=== PATIENT | male | born 1945 | race Caucasian/White ===

== ENCOUNTER → 2017-08-26 07:30 | Outpatient (CLI) | payer MEDICARE, SELFPAY ==
[2017-08-26 10:55] LABS: AST(SGOT) 27 U/L (15-37); Alanine Aminotransfer ALT/SGPT 32 U/L (16-61); Albumin, Serum 3.7 g/dL (3.2-5.0); Alkaline Phosphatase 66 U/L (45-117); Bilirubin, Direct 0.18 mg/dL (0.00-0.30); Cholesterol 103 mg/dL (200); Globulin 3.7 g/dL (2.2-4.2); High Density Lipoprotein 35 mg/dL; Protein, Total 7.4 g/dL (6.4-8.2); Triglycerides 98 mg/dL; Very Low Density Lipoprotein 20 mg/dL (5-40)
== END ==
PROVIDERS: Internal Medicine Cardiovascular Disease; Family Provider Family Medicine; PCP Family Medicine; Visit Provider Family Medicine
DX: E78.5 Hyperlipidemia, unspecified (principal); Z79.899 Other long term (current) drug therapy
CPT/HCPCS: 36415; 80061; 80076

== ENCOUNTER 2018-04-14 14:49 | Outpatient (RCR) | payer MEDICARE, SELFPAY ==
--- NOTE | 2018-04-14 15:52 | HP.PTEVAL ---
Patient's Visit Information YOSELYN PENALOZA Jr. is a 73 year old M referred to Physical Therapy by Chema Coleman with a diagnosis of vertigo. Date of Evaluation: 04/14/18 Physical Therapist: Desmond Leon, ELISAT, OCS, CSCS - Visit Plan Frequency: 1x/Week Duration: 4 Weeks Plan: weekly for adaptation ex progession...doing VOR30 -60 seconds 5x/day - Subjective Findings: Dizzy for a couple wekks now. Woke up that way and stayed for a while. Now worse in the am and can hardly walk but better as day goes on. Described as nausea and unsteady and some spinning with bending over, lying in bed or looking up. tried to trim some trees yesterday and it was bad. No falls. Sleep is good. Retired. needs help with balance to put pants on in am some days. - Objective Walks well and trasnfers well today without dizzyness. balance is good. C/s AROM WNL. - B hallpike and - roll test. Oculomotor: - head thrust. no nystagmus with gaze or head shake. - skew eye deviation. normal convergence. pursuit and saccades appear normal adn asymptomatic. VOR is symptomatic after 20 seconds 4/10 for 15 seconds. - Balance Scores Functional Gait Assessment Score: 30 % Disability: 0 CATSIB Score (Max score 120 seconds): 120 - Goals Goal 1:: abolish vertigo Goal Time Frame: 2-4 Weeks Goal 2:: Walk normal in am and safe and confident Goal Time Frame: 2-4 Weeks Goal 3:: put pants on without help Goal Time Frame: 2-4 Weeks - Rehabilitation Potential Physical Therapy Diagnosis: vertigo possibly vestibular. Rehabilitation Potential: Fair - Anticipated Interventions Patient/Client Instruction: Educate patient on: Condition, Plan of Care For the Purpose of:: To increase tolerance to activity/condition/position Comment: vestibular ex For the Purpose of:: To increase tolerance to activity/condition/position, To improve gait and locomotor functions Thank you for the opportunity to evaluate your patient. For Medicare and Medicare HMO plans, please review the plan of care and approve it. It will need to be FAXED BACK to us at [phone] for Medicare purposes. For Medicare only, by signing this I certify the plan of care. Please let me know if there are questions or concerns regarding this plan of care. Physician Signature: Date:
--- NOTE | 2018-06-09 16:20 | HP.PT.NRP ---
HP - Discharge Summary (1) - Patient Information YOSELYN PENALOZA Jr. was seen in my office for initial evaluation on 04/14/18. The following Plan of Care was established for this patient: Initial Frequency: 1x/Week Initial Duration: 4 Weeks - Anticipated Interventions Patient/Client Instruction: Educate patient on: Condition, Plan of Care For the Purpose of:: To increase tolerance to activity/condition/position For the Purpose of:: To increase tolerance to activity/condition/position, To improve gait and locomotor functions This patient was last seen in our office 04/14/18. Pertinent comments regarding their Physical therapy will appear below: pt seen one visit and then mom cancelled the rest as they were changing his meds and would call if they wished to return. it has been nearly two months adn I iwll disocntinue due to nonattendance. At this point I will be discontinuing this patient from physical therapy. I would be happy to see this patient again in the future if found appropriate by the physician. Thank you! Desmond Leon, DPT, OCS, CSCS
== END 2018-04-14 19:00 | disposition home or self-care (01) ==
LOC: PT 14:49
PROVIDERS: Family Provider Family Medicine; PCP Family Medicine; Referring Provider Family Medicine; Visit Provider Family Medicine
DX: R42 Dizziness and giddiness (principal)
CPT/HCPCS: 97110; 97162

== ENCOUNTER → 2018-04-24 07:36 | Outpatient (CLI) | payer MEDICARE, SELFPAY ==
[2018-04-17 12:37] VITALS: BMI 29.7
[2018-04-24 10:53] LABS: AST(SGOT) 23 U/L (15-37); Alanine Aminotransfer ALT/SGPT 30 U/L (16-61); Albumin, Serum 3.8 g/dL (3.2-5.0); Alkaline Phosphatase 71 U/L (45-117); Bilirubin, Direct 0.22 mg/dL (0.00-0.30); Cholesterol 107 mg/dL (200); Globulin 3.6 g/dL (2.2-4.2); High Density Lipoprotein 32 mg/dL; Protein, Total 7.4 g/dL (6.4-8.2); Triglycerides 124 mg/dL; Very Low Density Lipoprotein 25 mg/dL (5-40)
== END ==
PROVIDERS: Family Provider Family Medicine; PCP Family Medicine; Referring Provider Internal Medicine Cardiovascular Disease; Visit Provider Internal Medicine Cardiovascular Disease
DX: I25.10 Atherosclerotic heart disease of native coronary artery without angina pectoris (principal); E78.00 Pure hypercholesterolemia, unspecified
CPT/HCPCS: 36415; 80061; 80076

== ENCOUNTER → 2018-12-23 07:25 | Outpatient (CLI) | payer MEDICARE, SELFPAY ==
[2018-04-17 12:37] VITALS: BMI 29.7
[2018-12-23 10:12] LABS: Absolute Lymphocyte Count 1.66 X10^3/uL (0.83-4.51); Basophil# 0.05 X10^3/uL; Basophil% 0.9 % (0-1); Eosinophil# 0.12 X10^3/uL; Eosinophils% 2.2 % (0-5); Hematocrit 43.4 % (40-54); Lymphocyte # 1.66 X10^3/ul (4.0); Mean Corp Hgb Conc 34.6 g/dL (32-36); Mean Corpuscular Hgb 32.8 pg (27.0-32.0); Mean Corpuscular Volume 94.8 fL (80-94); Mean Platelet Vol. 10.4 fl (6.2-12.0); Monocyte# 0.51 X10^3/uL; Monocyte% 9.5 % (0-10); NRBC Flagged by Analyzer 0 % (0-5); Neutrophil # 3.01 X10^3/uL (2.7-7.7); Neutrophil % 56.2 % (47-70); Platelet Count 222 K/mm3 (150-450); RBC Distribution Width SD 43.3 fl (35.1-43.9); Red Blood Count 4.58 M/mm3 (4.6-6.2); White Blood Count 5.4 K/mm3 (4.4-11.0)
[2018-12-23 10:22] LABS: Color, Urine Yellow (Yellow); Glucose, Dipstick Normal (Normal); Ketone-Dipstick Negative (Negative); Leukocyte Esterase-Dipstick Negative /ul (Negative); Nitrite-Dipstick Negative (Negative); Occult Blood-Urine Negative /ul (Negative); Protein-Dipstick Negative (Negative); Urine Bilirubin Dipstick Negative (Negative); Urine Clarity Clear (Clear); Urine Urobilinogen Normal (Normal)
[2018-12-23 10:33] LABS: Albumin, Serum 3.7 g/dL (3.2-5.0); BUN 16 mg/dL (7-18); BUN/Creat Ratio 16.6 RATIO (10-20); Creatinine, Serum 0.96 mg/dL (0.70-1.30); EST Glomerular Filtration Rate 81 mL/min (>60); Est Glom Filt Rate - Afr Amer 98 mL/min (>60); Globulin 3.7 g/dL (2.2-4.2); Glucose 99 mg/dL (74-106); Protein, Total 7.4 g/dL (6.4-8.2)
[2018-12-23 10:34] LABS: AST(SGOT) 31 U/L (15-37); Alanine Aminotransfer ALT/SGPT 33 U/L (16-61); Alkaline Phosphatase 78 U/L (45-117); Anion Gap 7 (5-15); Calcium,Total 8.8 mg/dL (8.5-10.1); Chloride 105 mmol/L (98-107); Cholesterol 121 mg/dL (200); High Density Lipoprotein 37 mg/dL; PSA,Total - Annual Screen 0.45 ng/mL (0.00-4.00); Potassium 4.6 mmol/L (3.5-5.1); Sodium Level 140 mmol/L (136-145); Triglycerides 140 mg/dL; Very Low Density Lipoprotein 28 mg/dL (5-40)
== END ==
PROVIDERS: Family Provider Family Medicine; PCP Family Medicine; Referring Provider Family Medicine; Visit Provider Family Medicine
DX: Z00.00 Encounter for general adult medical examination without abnormal findings (principal); N19 Unspecified kidney failure; I10 Essential (primary) hypertension; E78.00 Pure hypercholesterolemia, unspecified; Z12.5 Encounter for screening for malignant neoplasm of prostate
CPT/HCPCS: 36415; 80053; 80061; 81002; 82248; 84153; 85025; G0103

== ENCOUNTER → 2019-05-17 12:55 | Outpatient (CLI) | payer MEDICARE, SELFPAY ==
[2019-04-15 15:13] VITALS: BMI 30.1
--- NOTE | 2019-05-17 12:57 | ECHOCS_ITS ---
Version 2 Reason For Study: CAD/ASHD Procedure This was a 2D Doppler, Color Flow transthoracic echocardiogram. Contrast injection was performed. The study was technically difficult. Exam performed in department. Left Ventricle Normal LV size. Left ventricular systolic function is lower limits of normal. The estimated ejection fraction is 50 %. Normal diastology for age. Irwin : Akinetic. Mid-Anterior : Hypokinetic. Septal [place] : Akinetic. Mid-anteroseptal : Hypokinetic. The rest of the wall segments are normal. Right Ventricle Normal RV size. Normal systolic function. Atria Normal left atrium. Normal right atrium. Mitral Valve Normal mitral valve. Mild (1+) eccentric mitral valve insufficiency. Tricuspid Valve Normal tricuspid valve. Mild (1+) tricuspid valve insufficiency. Pulmonary artery systolic pressure is 25 mmHg. Aortic Valve Trisinus/trileaflet aortic valve. Mild focal aortic valve calcification. Pulmonic Valve Normal pulmonic valve. Great Vessels Normal aortic root. The pulmonary artery is normal size. Normal inferior vena cava. Pericardium/Pleural No pericardial effusion. Medication Diluted definity 6ml given slow IV push to enhance endocardial definition. MMode/2D Measurements & Calculations LVIDd: 4.6 cm IVSd: 1.5 cm Ao root diam: 3.6 cm LVIDs: 3.5 cm LVPWd: 1.1 cm RVDd: 2.6 cm FS: 25.7 % LAV(MOD-bp): 58.2 ml LA A4 area: 18.3 cm2 LA dimension(2D): 4.3 cm LAV(MOD-bp) Indexed: 28.5 ml/m2 LAV(MOD-sp2): 63.2 ml LAV(MOD-sp4): 52.3 ml RA A4 area: 8.3 cm2 Doppler Measurements & Calculations MV E max regan: 53.6 cm/sec Lat Peak E' Regan: 9.0 cm/sec Med Peak E' Regan: 6.3 cm/sec MV A max regan: 66.4 cm/sec E/E' lat: 6.0 E/E' med: 8.6 MV E/A: 0.81 Ao V2 max: 157.8 cm/sec LV V1 max: 87.9 cm/sec PA V2 max: 65.8 cm/sec Ao max P.0 mmHg LV V1 max P.1 mmHg Ao V2 mean: 111.8 cm/sec Ao mean P.4 mmHg Ao V2 VTI: 33.8 cm TR max regan: 228.1 cm/sec TR max P.8 mmHg Interpretation Summary Normal LV size. Left ventricular systolic function is lower limits of normal. The estimated ejection fraction is 50 %. Normal diastology for age. Mild (1+) tricuspid valve insufficiency. Mild (1+) eccentric mitral valve insufficiency. Contrast injection was performed. Compared to prior study, there is no significant change. Ordering Physician: Tee Raymundo Referring Physician: Chema Coleman Performed By: Norah De Los Santos RDCS, RVT
== END ==
PROVIDERS: PCP Family Medicine; Referring Provider Internal Medicine Cardiovascular Disease; Visit Provider Internal Medicine Cardiovascular Disease
DX: I25.10 Atherosclerotic heart disease of native coronary artery without angina pectoris (principal)
CPT/HCPCS: 93306; Q9957; A4216; C8929

== ENCOUNTER → 2020-01-12 07:02 | Outpatient (CLI) | payer MEDICARE, SELFPAY ==
[2019-04-15 15:13] VITALS: BMI 30.1
[2020-01-12 10:07] LABS: Absolute Lymphocyte Count 1.62 X10^3/uL (0.83-4.51); Absolute Neutrophil Count 3.4 X10^3/uL (2.0-7.7); Basophil# 0.05 X10^3/uL; Basophil% 0.9 % (0-1); Eosinophil# 0.14 X10^3/uL; Eosinophils% 2.4 % (0-5); Hematocrit 48.2 % (40-54); Hemoglobin 15.8 g/dL (13.0-16.5); Lymphocyte # 1.62 X10^3/ul (4.0); Lymphocyte % 27.8 % (19-41); Mean Corp Hgb Conc 32.8 g/dL (32-36); Mean Corpuscular Volume 94.5 fL (80-94); Mean Platelet Vol. 10.6 fl (6.2-12.0); Monocyte# 0.58 X10^3/uL; NRBC Flagged by Analyzer 0 % (0-5); Neutrophil # 3.41 X10^3/uL (2.7-7.7); Neutrophil % 58.6 % (47-70); Platelet Count 251 K/mm3 (150-450); RBC Distribution Width CV 12.3 % (11.6-14.6); RBC Distribution Width SD 42.8 fl (35.1-43.9); White Blood Count 5.8 K/mm3 (4.4-11.0)
[2020-01-12 10:36] LABS: ALB/GLOB Ratio 1.1 RATIO (0.9-2.4); AST(SGOT) 29 U/L (15-37); Alanine Aminotransfer ALT/SGPT 35 U/L (16-61); Albumin, Serum 3.9 g/dL (3.2-5.0); Alkaline Phosphatase 75 U/L (45-117); Anion Gap 3 (5-15); BUN 17 mg/dL (7-18); BUN/Creat Ratio 17.2 RATIO (10-20); Calcium,Total 8.8 mg/dL (8.5-10.1); Chloride 106 mmol/L (98-107); Cholesterol 104 mg/dL (200); Creatinine, Serum 0.99 mg/dL (0.70-1.30); EST Glomerular Filtration Rate 78 mL/min (>60); Est Glom Filt Rate - Afr Amer 95 mL/min (>60); Globulin 3.6 g/dL (2.2-4.2); Glucose 99 mg/dL (74-106); High Density Lipoprotein 39 mg/dL; PSA,Total - Annual Screen 0.41 ng/mL (0.00-4.00); Potassium 4.6 mmol/L (3.5-5.1); Protein, Total 7.5 g/dL (6.4-8.2); Sodium Level 140 mmol/L (136-145); Triglycerides 118 mg/dL; Very Low Density Lipoprotein 24 mg/dL (5-40)
== END ==
PROVIDERS: PCP Family Medicine; Referring Provider Family Medicine; Visit Provider Family Medicine
DX: I25.10 Atherosclerotic heart disease of native coronary artery without angina pectoris (principal); I10 Essential (primary) hypertension; E78.00 Pure hypercholesterolemia, unspecified; Z12.5 Encounter for screening for malignant neoplasm of prostate
CPT/HCPCS: 36415; 80053; 80061; 84153; 85025; G0103

== ENCOUNTER → 2020-04-24 06:04 | Outpatient (CLI) | payer MEDICARE, SELFPAY ==
[2020-04-13 14:20] VITALS: BMI 30.2
--- NOTE | 2020-04-24 12:24 | STRESSREP_ITS ---
Stress Test Report Exercise myocardial perfusion stress test. 75-year-old man with a history of coronary artery disease status post previous angioplasty and stenting of the left anterior descending artery in 2003 and a history of mild ischemic cardiomyopathy. Stress protocol: Resting EKG demonstrates sinus rhythm with a rate of 67 bpm poor R wave progress ion. Resting blood pressure is 124/86 mmHg. The patient exercised according to regular Yair protocol for a total duration of 9 minutes. The maximum heart rate was 148 bpm which was 103% of max impacted heart rate the maximum workload was 10.1 metabolic equivalents. Patient completed stage III of the Yair protocol. At rest there were no ST or T wave changes noted suggest ischemia at peak exercise upsloping ST changes were noted with no meet the criteria for ischemia. No clinical angina was noted the test was terminated due to the target heart rate being achieved. The peak blood pressure was 164/90 mmHg rate- pressure product 23,900. Myocardial perfusion protocol. 11.8 mCi of technetium 99m sestamibi was injected at rest. The patient exercised according to regular Yair protocol for 9 minutes and at peak exercise 32.8 mCi of technetium 99m sestamibi was injected stress images were obtained stress and rest images were reconstructed and compared in the short axis vertical long horizontal long axis. Gated images were also obtained Perfusion SPECT analysis: Review of the images demonstrate an upper normal left ventricular size. There is a large defect noted involving the entire inferior wall extending to the apex and the inferior septal wall. The anterior wall actually appears to be well perfused as well as the lateral wall. The resting images demonstrate a similar pattern. The above is suggestive of a previous extensive apical and inferoseptal and inferior infarct. No obvious reversibility is noted to suggest ischemia. Gated SPECT analysis: The gated ejection fraction is 48%. Conclusion: Exercise myocardial perfusion stress test with evidence of previous extensive inferior septal, apical, and mid inferior infarct. Mild cardiomyopathy.
== END ==
PROVIDERS: PCP Family Medicine; Referring Provider Internal Medicine Cardiovascular Disease; Visit Provider Internal Medicine Cardiovascular Disease
DX: I25.10 Atherosclerotic heart disease of native coronary artery without angina pectoris (principal); Z95.5 Presence of coronary angioplasty implant and graft
CPT/HCPCS: 78452; 93017; A9500; A4216

== ENCOUNTER → 2021-01-16 07:04 | Outpatient (CLI) | payer MEDICARE, SELFPAY ==
[2021-01-16 09:58] LABS: Absolute Lymphocyte Count 1.59 X10^3/uL (0.83-4.51); Absolute Neutrophil Count 4.3 X10^3/uL (2.0-7.7); Basophil# 0.06 X10^3/uL; Basophil% 0.9 % (0-1); Eosinophil# 0.16 X10^3/uL; Eosinophils% 2.3 % (0-5); Hematocrit 44.6 % (40-54); Hemoglobin 15.4 g/dL (13.0-16.5); Lymphocyte # 1.59 X10^3/ul (0.83-4.51); Lymphocyte % 23.3 % (19-41); Mean Corp Hgb Conc 34.5 g/dL (32-36); Mean Corpuscular Hgb 32.1 pg (27.0-32.0); Mean Corpuscular Volume 92.9 fL (80-94); Mean Platelet Vol. 10.4 fl (6.2-12.0); Monocyte# 0.68 X10^3/uL; NRBC Flagged by Analyzer 0 % (0-5); Neutrophil # 4.32 X10^3/uL (2.7-7.7); Neutrophil % 63.2 % (47-70); Platelet Count 244 K/mm3 (150-450); RBC Distribution Width CV 12.3 % (11.6-14.6); RBC Distribution Width SD 41.7 fl (35.1-43.9); White Blood Count 6.8 K/mm3 (4.4-11.0)
[2021-01-16 10:47] LABS: ALB/GLOB Ratio 0.9 RATIO (0.9-2.4); AST(SGOT) 41 U/L (15-37); Alanine Aminotransfer ALT/SGPT 21 U/L (16-61); Albumin, Serum 3.7 g/dL (3.2-5.0); Alkaline Phosphatase 96 U/L (45-117); Anion Gap 2 (5-15); BUN 19 mg/dL (7-18); Chloride 106 mmol/L (98-107); Cholesterol 185 mg/dL (200); EST Glomerular Filtration Rate 77 mL/min (>60); Est Glom Filt Rate - Afr Amer 93 mL/min (>60); Globulin 3.9 g/dL (2.2-4.2); Glucose 102 mg/dL (74-106); High Density Lipoprotein 33 mg/dL; PSA,Total - Annual Screen 0.52 ng/mL (0.00-4.00); Potassium 4.6 mmol/L (3.5-5.1); Protein, Total 7.6 g/dL (6.4-8.2); Sodium Level 139 mmol/L (136-145); Triglycerides 131 mg/dL; Very Low Density Lipoprotein 26 mg/dL (5-40)
== END ==
PROVIDERS: PCP Family Medicine; Referring Provider Family Medicine; Visit Provider Family Medicine
DX: Z00.00 Encounter for general adult medical examination without abnormal findings (principal); I25.10 Atherosclerotic heart disease of native coronary artery without angina pectoris; I10 Essential (primary) hypertension; E78.00 Pure hypercholesterolemia, unspecified; Z12.5 Encounter for screening for malignant neoplasm of prostate
CPT/HCPCS: 36415; 80053; 80061; 84153; 85025; G0103

== ENCOUNTER → 2021-08-02 | Outpatient (CLI) | payer MEDICARE, SELFPAY ==
[2021-08-02 10:27] LABS: ALB/GLOB Ratio 1.1 RATIO (0.9-2.4); AST(SGOT) 25 U/L (15-37); Alanine Aminotransfer ALT/SGPT 28 U/L (16-61); Albumin, Serum 3.7 g/dL (3.2-5.0); Alkaline Phosphatase 71 U/L (45-117); Anion Gap 5 (5-15); BUN 17 mg/dL (7-18); BUN/Creat Ratio 17.8 RATIO (10-20); Calcium,Total 8.9 mg/dL (8.5-10.1); Chloride 105 mmol/L (98-107); Cholesterol 108 mg/dL (200); Creatinine, Serum 0.96 mg/dL (0.70-1.30); EST Glomerular Filtration Rate 81 mL/min (>60); Est Glom Filt Rate - Afr Amer 98 mL/min (>60); Globulin 3.4 g/dL (2.2-4.2); Glucose 102 mg/dL (74-106); High Density Lipoprotein 35 mg/dL; Potassium 4.6 mmol/L (3.5-5.1); Protein, Total 7.1 g/dL (6.4-8.2); Sodium Level 140 mmol/L (136-145); Triglycerides 110 mg/dL; Very Low Density Lipoprotein 22 mg/dL (5-40)
== END | disposition home or self-care (01) ==
PROVIDERS: PCP Family Medicine; Referring Provider Family Medicine; Visit Provider Family Medicine
DX: I10 Essential (primary) hypertension (principal); E78.00 Pure hypercholesterolemia, unspecified
CPT/HCPCS: 36415; 80053; 80061

== ENCOUNTER → 2022-04-03 | Outpatient (CLI) | payer MEDICARE, SELFPAY ==
--- NOTE | 2022-04-03 07:26 | MRI_ITS ---
EXAM: MR LEFT LOWER EXTREMITY WITHOUT INTRAVENOUS CONTRAST, FOOT CLINICAL INDICATION: Pain top of foot in the metatarsal region for 6 months. No known injury. TECHNIQUE: Multiplanar and multisequence MR images of the left foot without intravenous contrast. Magnetic field strength 1.5 T. This report was created using [employer] report generation technology. COMPARISON: None. FINDINGS: LIGAMENTS: MEDIAL COLLATERAL: Unremarkable. Intact. LATERAL COLLATERAL: Unremarkable. Intact. LISFRANC: Unremarkable. Intact. TENDONS: FLEXOR: Unremarkable. Intact. EXTENSOR: Unremarkable. Intact. PERONEAL: Unremarkable. Intact. TIBIALIS ANTERIOR: Unremarkable. Intact. TIBIALIS POSTERIOR: Unremarkable. Intact. MUSCLES: Unremarkable. No edema or myositis. PLANTAR FASCIA: Unremarkable. Intact. BONES/JOINTS: The first cuneiform navicular joint demonstrates loss of joint space narrowing, a slight joint effusion, and edema within the first cuneiform and navicular adjacent to the joint space. Joint space narrowing and marginal osteophytes involving the first metatarsal-phalangeal joint. Normal forefoot alignment. No fracture. No bone marrow edema. No joint effusion. OTHER SOFT TISSUES: Unremarkable. MRI/Lower Ext/No Jt/w/o IMPRESSION: 1. 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 2. Osteoarthritis first metatarsal phalangeal joint. Electronically Signed: Wes Subramanian MD at 4:26 EST ,
== END | disposition home or self-care (01) ==
PROVIDERS: PCP Family Medicine; Referring Provider Podiatrist; Visit Provider Podiatrist
DX: M19.072 Primary osteoarthritis, left ankle and foot (principal); M79.672 Pain in left foot
CPT/HCPCS: 73718

== ENCOUNTER 2024-04-25 12:33 | Emergency (ER) | payer MEDICARE, SELFPAY ==
[2024-04-25 12:33] VITALS: BP 149/82; PULSE 93; RESP 18; TEMP 36.9; O2SAT 94; BMI 28.9
--- NOTE | 2024-04-25 12:56 | EDS_ITS ---
HPI <PAOLA Liu - Last Filed: 04/25/24 15:40> History of Present Illness Chief Complaint: Chest Pain Narrative Narrative: Patient is a 79-year-old male with history of CAD, 3 stent placements, patient does see Dr. Raymundo here. Also has history of GERD, hypertension who presents to the [facility] for 1 week of intermittent left wall chest pain. Patient states that it comes and goes. Patient states that it is intermittent, comes on as sharp, and goes into his upper back. Patient states that there is nothing that makes it worse or better. Patient denies any shortness of breath. Patient denies any nausea or vomiting. Denies any recent car rides, leg pain, recent surgeries or history of blood clots in the legs or lungs [facility] <PAOLA Liu - Last Filed: 04/25/24 15:40> [facility] Medical History (Updated 04/25/24 @ 15:[address] Presley Pruitt MD) Osteoarthritis Subconjunctival bleed History of anterior wall myocardial infarction Cerebrovascular accident Ischemic cardiomyopathy Atherosclerotic heart disease of [place] coronary artery without angina pectoris Essential (primary) hypertension Hyperlipidemia Home Medications ?Medication ?Instructions ?Recorded ?Last Taken ?Type aspirin 81 mg tablet,delayed 81 mg PO DAILY@0800 01/03 Unknown History release omeprazole 20 mg capsule,delayed 20 mg PO DAILY Unknown History release nitroglycerin 0.4 mg sublingual 0.4 mg sublingual Q5-1 5M PRN chest 04/15/23 Unknown Rx tablet pain #25 tabs metoprolol tartrate 25 mg tablet 25 mg PO BID #180 TAB LETS 08/18/23 Unknown Rx enalapril maleate 5 mg tablet 5 mg PO DAILY #90 TABLET S 11/11/23 Unknown Rx rosuvastatin 10 mg tablet (Crestor) 10 mg PO DAILY #90 tabs 02/11/24 Unknown Rx Allergy/AdvReac Type Severity Reaction Status Date / Time No Known Allergies Allergy Verified 04/25/24 12:35 Family History Father CAD (coronary artery disease) Mother No problems noted. Brother CAD (coronary artery disease) CVA (cerebral vascular accident) Grandfather CVA (cerebral vascular accident) Uncle Myocardial infarction Surgical History History of electrophysiologic study (02/10/04) History of coronary artery stent placement (09/2003) H/O foot surgery H/O vein stripping (~1979) Social History Smoking Status: Former smoker alcohol intake: never substance use type: does not use caffeine: Yes Type: coffee Number of servings: 2 what type of physical activity do you participate in: walking frequency: daily duration: 15-30 minutes/day seatbelt use: always do you feel safe at home: Yes ROS <PAOLA Liu - Last Filed: 04/25/24 15:40> ROS ED ROS Narrative Constitutional: Negative for fever, chills, weight loss, weakness Eyes: Negative for vision loss, vision change, double vision ENT: Negative for any sore throat, ear pain, congestion Cardiovascular: Negative for any palpitations. Positive chest pain, tightness Respiratory: Negative for any cough, sputum production, hemoptysis, dyspnea, dyspnea on exertion, orthopnea Gastrointestinal: Negative for any abdominal pain, nausea, vomiting, diarrhea, constipation, blood in stool, blood in vomit : Negative for any urinary frequency, dysuria, retention, blood in urine Muscle skeletal: Negative for any neck pain. Positive for back pain Neurological: Negative for any headache, syncope, dizziness Skin: Negative for any rashes, itching, abrasions, lacerations Psychiatric: Negative for any depression, anxiety, stress, suicidal ideation, homicidal ideation Hematologic: Negative for any excessive bruising, easy bleeding EXAM <PAOLA Liu - Last Filed: 04/25/24 15:40> Physical Exam Narrative Exam Narrative: Vital signs reviewed. Patient appears to be in no obvious distress. Patient states he still having slight symptoms however is nothing like what it was HEET: Head normocephalic atraumatic, TMs clear bilaterally. Posterior pharynx is clear, moist mucous membranes. Nares clear bilaterally. Neck: Supple with no lymphadenopathy or tenderness. No signs of meningismus. Cardiac: Regular rate and rhythm no murmurs gallops or rubs, equal peripheral pulses bilaterally. Respiratory: Lungs clear to auscultation bilaterally. No chest tenderness. Abdomen: Soft, nontender, nondistended. No abdominal bruit or pulsatile masses. No hepatosplenomegaly Extremities: No peripheral edema, no signs of gross trauma or deformity. Active full range of motion of all extremities. Neuro: Cranial nerves II through XII intact, no focal neurological deficits. Skin: Clean dry and intact with no rash, purpura, petechiae, vesicles or pustules. Backs/flank: No CVA tenderness, no midline spinal tenderness, no deformity. Psych: Normal mood and affect. No SI, HI or acute psychosis. Const Vital Signs: 04/25/24 12:33 04/25/24 13:00 04/25/24 13:00 Temperature 98.4 F Temperature Source Oral Pulse Rate 93 Respiratory Rate 18 Respiratory Effort Normal Blood Pressure 149/82 H Blood Pressure Mean 104 Pulse Ox 94 Oxygen Delivery Method Room Air Room Air 04/25/24 14:11 04/25/24 15:00 04/25/24 15:41 Temperature 98.5 F Temperature Source Pulse Rate 78 70 70 Respiratory Rate 16 20 H 15 Respiratory Effort Blood Pressure 103/66 114/75 114/67 Blood Pressure Mean 78 87 82 Pulse Ox 92 95 100 Oxygen Delivery Method Room Air Positive well nourished and well developed General Appearance ED: well developed <Dr. Presley Pruitt MD - Last Filed: 04/25/24 15:50> Physical Exam Const Vital Signs: 04/25/24 12:33 04/25/24 13:00 04/25/24 13:00 Temperature 98.4 F Temperature Source Oral Pulse Rate 93 Respiratory Rate 18 Respiratory Effort Normal Blood Pressure 149/82 H Blood Pressure Mean 104 Pulse Ox 94 Oxygen Delivery Method Room Air Room Air 04/25/24 14:11 04/25/24 15:00 04/25/24 15:41 Temperature 98.5 F Temperature Source Pulse Rate 78 70 70 Respiratory Rate 16 20 H 15 Respiratory Effort Blood Pressure 103/66 114/75 114/67 Blood Pressure Mean 78 87 82 Pulse Ox 92 95 100 Oxygen Delivery Method Room Air MDM <PAOLA Liu - Last Filed: 04/25/24 15:40> MDM Lab Data Labs: Laboratory Results - last 24 hr 04/25/24 04/25/24 12:57 14:58 WBC 5.4 RBC 3.51 L Hgb 11.0 L Hct 32.6 L MCV 92.9 MCH 31.3 MCHC 33.7 RDW Std Deviation 42.8 RDW Coeff of Alexa 12.6 Plt Count 155 MPV 9.5 Immature Gran % (Auto) 0.200 Neut % (Auto) 66.5 Lymph % (Auto) 20.9 Saline % (Auto) 8.7 Eos % (Auto) 3.0 Baso % (Auto) 0.7 Absolute Neuts (auto) 3.6 Absolute Lymphs (auto) 1.13 Nucleated RBC % 0 Sodium 139 Potassium 4.2 Chloride 105 Carbon Dioxide 28.0 Anion Gap 6 BUN 17 Creatinine 1.03 Estim Creat Clear Calc 60.15 Est GFR (MDRD) Af Amer 89 Est GFR (MDRD) Non-Af 74 BUN/Creatinine Ratio 16.5 Glucose 154 H Calcium 9.2 Total Bilirubin 0.60 AST 20 ALT 23 Alkaline Phosphatase 82 Troponin I High Sens 18 19 Total Protein 7.3 Albumin 3.7 Globulin 3.6 Albumin/Globulin Ratio 1.0 Lipase 53 L Radiography Diagnostic Testing: Clinical Impression(s) from Imaging Studies Chest X-Ray 04/25/24 13:18 IMPRESSION: NEGATIVE CHEST Reading Location: [facility] EKG EKG shows normal sinus rhythm: Comments: Normal sinus rhythm, rate of 97 bpm, NJ interval 206 ms, QRS duration 124 ms, no acute ST elevation, no acute infarct noted. Treatment and Re-Evaluation :: Differential diagnosis includes however is not limited to: ACS, NE, PE, unstable angina, GERD, gas pain, pancreatitis Patient appears generally well, vital signs are stable, patient is nontoxic- appearing. Presenting to the emergency department for complaints of left-sided chest pain, going through to his back for 1 week. I did look at the patient's previous cardiac visits. Patient did see cardiology within the last year. Last echocardiogram was in 2019, EF was 50% at that time, chemical stress test was 2020. Patient will receive a full cardiac workup including 2 troponins, chest x-ray, CBC CMP lipase will be obtained, patient will try GI cocktail to see if this does relieve any of his pain. Patient receive a two-view chest x-ray. All radiologic examinations were read, reviewed by the emergency department attending. From these reads, a plan of care will be put in place. Patient CBC shows a hemoglobin of 11, this did decrease from 2020 that was 15.4, patient's chemistries were unremarkable, patient initial troponin was 18 with a 19 lipase was negative. Patient's chest x-ray shows low lung volumes bilaterally, normal heart size, no consolidation or pleural effusion or pneumothorax. At this time, I have low suspicion for any acute ACS or NE. Patient states that the GI cocktail did not really help. Patient states that he is stable, he will follow-up outpatient. Patient was given strict return precaution return for any worsening chest pain, shortness of breath fever chills nausea or vomiting. All questions answered, stable for discharge. <Dr. Presley Pruitt MD - Last Filed: 04/25/24 15:50> [facility] MDM Narrative Medical decision making narrative: I have personally performed a face to face assessment of the patient and have reviewed the DARRIN Note. I performed a substantive portion of the visit including all aspects of the following. My contreras findings include: History is left chest pain that has a positional component is related to food and feels like when he had his massive NE in 1995. Patient also has history of hiatal hernia. He says this pain is different in his hiatal hernia. He denies orthopnea or PND. He denies diaphoresis, shortness of breath nausea or vomiting. He denies radiation of the pain. He denies black or maroon-colored stool. The pain has been intermittent over the past week. It does last up to hours. He denies leg pain, swelling discoloration. There is no history of VTE. He does take an aspirin a day. He also has history of hypertension and hypercholesterolemia. He states he has been compliant with his omeprazole. Exam is as remarked for slightly elevated blood pressure. He appears in no obvious distress. HEENT exam is unremarkable. Lungs encrustation with symmetric breath sounds. Heart is regular. Rate is normal. There is no mu rmur, gallop or rub. Patient does not have crepitus or subcutaneous air on palpation of the chest. There is slight discomfort with palpation. He states this is different pain. Trachea is midline. There is no JVD. Abdomen is soft nontender. There is no paraspinal megaly. There is no asymmetry, swelling, discoloration, leg vein distention, palpable cords or tenderness along the distribution of the deep venous system. He is alert orient x 3. Moves all extremities. Medical Decision Making differential diagnosis would include reflux, gastritis/esophagitis, hiatal hernia, cardiac ischemia, pulmonary disease. Will obtain EKG, chest x-ray troponin with delta troponin and CBC to assess for anemia and white count and electrolyte panel to assess for renal dysfunction and as well as glucose anion gap. Other additions or changes: Patient had cardiac catheterization stents placed at [facility]. He had total of 3 stents placed. Stents were placed in the LAD and diagonal. This would explain the decreased anterior force noted on the EKG. History & Record Review Additional record(s) reviewed:: Prior outpatient record, Prior ED visit and Prior labs Lab Data Attestation: I reviewed the patient's lab results. Lab results narrative: CBC is remarkable for mild anemia with normal indices. Competence of metabolic panel was normal glucose of 154 with normal CO2 anion gap. Transaminases are normal. First troponin is normal. Lipase is normal. Delta troponin is +1. Both troponins are normal. Labs: Laboratory Results - last 24 hr 04/25/24 04/25/24 12:57 14:58 WBC 5.4 RBC 3.51 L Hgb 11.0 L Hct 32.6 L MCV 92.9 MCH 31.3 MCHC 33.7 RDW Std Deviation 42.8 RDW Coeff of Alexa 12.6 Plt Count 155 MPV 9.5 Immature Gran % (Auto) 0.200 Neut % (Auto) 66.5 Lymph % (Auto) 20.9 Saline % (Auto) 8.7 Eos % (Auto) 3.0 Baso % (Auto) 0.7 Absolute Neuts (auto) 3.6 Absolute Lymphs (auto) 1.13 Nucleated RBC % 0 Sodium 139 Potassium 4.2 Chloride 105 Carbon Dioxide 28.0 Anion Gap 6 BUN 17 Creatinine 1.03 Estim Creat Clear Calc 60.15 Est GFR (MDRD) Af Amer 89 Est GFR (MDRD) Non-Af 74 BUN/Creatinine Ratio 16.5 Glucose 154 H Calcium 9.2 Total Bilirubin 0.60 AST 20 ALT 23 Alkaline Phosphatase 82 Troponin I High Sens 18 19 Total Protein 7.3 Albumin 3.7 Globulin 3.6 Albumin/Globulin Ratio 1.0 Lipase 53 L Radiography Chest X-Ray - ED: Read by ED Physician (X-ray was entirely reviewed interpreted by me at 1354 as negative for acute process. There is atelectasis left base. Cardiac size is normal. Cardiac silhouette is unremarkable. Inspiratory volume is limited. There is no evidence of cephalization, curly B-lines or infiltrate. There are some chr) Diagnostic Testing: Clinical Impression(s) from Imaging Studies Chest X-Ray 04/25/24 13:18 IMPRESSION: NEGATIVE CHEST Reading Location: [facility] Discharge Plan Triage Chief Complaint: Chest Pain ED Midlevel Provider: Jackson Whitmore ED Provider: Presley Pruitt Dx/Rx/DC Orders Clinical Impression: Acute left-sided thoracic back pain, Hyperlipidemia, History of anterior wall myocardial infarction, Essential (primary) hypertension, Atherosclerotic heart disease of [place] coronary artery without angina pectoris, Ischemic cardiomyopathy Instructions: ED Chest Pain, Uncertain Cause Prescriptions: No Action nitroglycerin 0.4 mg tablet, sublingual 0.4 mg SUBLINGUAL Q5-15M PRN (Reason: chest pain) Qty: 25 4RF aspirin 81 MG tablet 81 mg PO DAILY@0800 Patient Comments: WILL STOP 01/03 omeprazole 20 mg capsule,delayed release(DR/EC) 20 mg PO DAILY metoprolol tartrate 25 mg tablet 25 mg PO BID Qty: 180 3RF enalapril maleate 5 mg tablet 5 mg PO DAILY Qty: 90 3RF rosuvastatin [Crestor] 10 mg tablet 10 mg PO DAILY Qty: 90 3RF Primary Care Provider: Chema Coleman Referrals: Chema Coleamn MD [Primary Care Provider] - Activity Restrictions/Additional Instructions: Please continue to follow-up outpatient. Return here for any worsening chest pain, fever chills nausea vomiting. Print Language: Romanian Disposition Disposition: Home, Self Care Discharge Date/Time: 04/25/24 15:50
[2024-04-25] MEDS: Mag Hydrox/Al Hydrox/Simeth 30 ML UDC PO (13:02)
[2024-04-25] MEDS: Lidocaine 2% Viscous15 ML UDC 15 ML PO (13:02)
[2024-04-25 13:07] LABS: Absolute Lymphocyte Count 1.13 X10^3/uL (0.83-4.51); Absolute Neutrophil Count 3.6 X10^3/uL (2.0-7.7); Basophil# 0.04 X10^3/uL; Basophil% 0.7 % (0-1); Eosinophil# 0.16 X10^3/uL; Hematocrit 32.6 % (40-54); Lymphocyte # 1.13 X10^3/ul (0.83-4.51); Lymphocyte % 20.9 % (19-41); Mean Corp Hgb Conc 33.7 g/dL (32-36); Mean Corpuscular Hgb 31.3 pg (27.0-32.0); Mean Corpuscular Volume 92.9 fL (80-94); Mean Platelet Vol. 9.5 fl (6.2-12.0); Monocyte# 0.47 X10^3/uL; Monocyte% 8.7 % (0-10); NRBC Flagged by Analyzer 0 % (0-5); Neutrophil % 66.5 % (47-70); Platelet Count 155 K/mm3 (150-450); RBC Distribution Width CV 12.6 % (11.6-14.6); RBC Distribution Width SD 42.8 fl (35.1-43.9); Red Blood Count 3.51 M/mm3 (4.6-6.2); White Blood Count 5.4 K/mm3 (4.4-11.0)
--- NOTE | 2024-04-25 13:18 | RAD_ITS ---
PROCEDURE: CHEST PA AND LATERAL REASON FOR EXAM: 79-year-old male, chest pain. TECHNIQUE: Frontal and lateral views of the chest. COMPARISON: None. FINDINGS: Low lung volumes bilaterally. The heart size is normal. The mediastinal contour is unremarkable. No focal consolidation, pleural effusion or pneumothorax. Degenerative changes are identified within the thoracic spine. RAD/Chest PA and Lateral IMPRESSION: NEGATIVE CHEST Reading Location: [id number]
[2024-04-25 13:50] LABS: AST(SGOT) 20 U/L (15-37); Alanine Aminotransfer ALT/SGPT 23 U/L (16-61); Albumin, Serum 3.7 g/dL (3.2-5.0); Alkaline Phosphatase 82 U/L (45-117); Anion Gap 6 (5-15); BUN 17 mg/dL (7-18); BUN/Creat Ratio 16.5 RATIO (10-20); Calcium,Total 9.2 mg/dL (8.5-10.1); Chloride 105 mmol/L (98-107); Creatinine, Serum 1.03 mg/dL (0.70-1.30); EST Glomerular Filtration Rate 74 mL/min (>60); Est Glom Filt Rate - Afr Amer 89 mL/min (>60); Estimated Creatinine Clearance 60.15 ml/min; Globulin 3.6 g/dL (2.2-4.2); Glucose 154 mg/dL (74-106); Lipase 53 U/L (73-393); Potassium 4.2 mmol/L (3.5-5.1); Protein, Total 7.3 g/dL (6.4-8.2); Sodium Level 139 mmol/L (136-145); Troponin-I HS (w/2H Reflex) 18 pg/mL (3.0-78.0)
[2024-04-25 14:11] VITALS: BP 103/66; PULSE 78; RESP 16; O2SAT 92
[2024-04-25 14:59] LABS: Reflex Troponin-HS? (from REC) Y
[2024-04-25 15:00] VITALS: BP 114/75; PULSE 70; RESP 20; O2SAT 95
[2024-04-25 15:23] LABS: Troponin-I HS 19 pg/mL (3.0-78.0)
[2024-04-25 15:41] VITALS: BP 114/67; PULSE 70; RESP 15; TEMP 36.9; O2SAT 100
== END 2024-04-25 15:50 | disposition home or self-care (01) ==
PROVIDERS: Nurse Practitioner; Emergency Provider Emergency Medicine; PCP Family Medicine; Visit Provider Emergency Medicine
DX: M54.6 Pain in thoracic spine (principal); K44.9 Diaphragmatic hernia without obstruction or gangrene; Z95.5 Presence of coronary angioplasty implant and graft; Z87.891 Personal history of nicotine dependence; I25.5 Ischemic cardiomyopathy; I25.10 Atherosclerotic heart disease of native coronary artery without angina pectoris; I10 Essential (primary) hypertension; E78.5 Hyperlipidemia, unspecified; I25.2 Old myocardial infarction
CPT/HCPCS: 71046; 80053; 83690; 84484; 85025; 93005; 99284; A4216

== ENCOUNTER → 2024-06-24 | Outpatient (CLI) | payer MEDICARE, SELFPAY ==
--- NOTE | 2024-06-24 06:36 | ECHOCS_ITS ---
Reason For Study Reason For Study: cad/ashd Procedure This was a 2D Doppler, Color Flow transthoracic echocardiogram. The study was technically difficult. Contrast injection was performed. Exam performed in department. Left Ventricle Normal LV size. Segmental dysfunction with preserved ejection fraction (see wall motion). The left ventricular ejection fraction is 50 %. Septal [place] : Akinetic. Mid-anteroseptal : Hypokinetic. The rest of the wall segments are normal. Right Ventricle Normal RV size. Normal systolic function. Atria Normal left atrium. Normal right atrium. Mitral Valve Normal mitral valve. Mild (1+) eccentric mitral valve insufficiency. Tricuspid Valve Normal tricuspid valve. Aortic Valve Normal aortic valve. Pulmonic Valve Normal pulmonic valve. Great Vessels Normal sized aortic root. The pulmonary artery is normal size. Inferior vena cava collapse with respiration. Pericardium/Pleural No pericardial effusion. Medication Diluted definity 1.5ml given slow IV push to enhance endocardial definition. MMode/2D Measurements & Calculations LVIDd: 4.7 cm IVSd: 1.1 cm LVOT diam: 2.0 cm LVIDs: 3.4 cm LVPWd: 1.1 cm FS: 26.3 % LVOT area: 3.2 cm2 Ao root diam: 3.6 cm LAV(MOD-bp): 44.2 ml LVAd ap4: 42.9 cm2 LAV(MOD-bp) Indexed: 22.3 ml/m2 LVLd ap4: 9.4 cm LAV(MOD-sp2): 60.7 ml EDV(MOD-sp4): 161.8 ml LAV(MOD-sp4): 28.3 ml EDV(sp4-el): 165.9 ml LVAs ap4: 30.7 cm2 LVLs ap4: 8.3 cm ESV(MOD-sp4): 93.3 ml ESV(sp4-el): 96.7 ml EF(MOD-sp4): 42.3 % EF(sp4-el): 41.7 % SV(MOD-sp4): 68.5 ml SV(sp4-el): 69.1 ml LA A4 area: 12.5 cm2 SI(MOD-sp4): 34.6 ml/m2 LA dimension(2D): 4.3 cm RA A4 area: 13.2 cm2 Time Measurements MV dec time: 0.19 sec Doppler Measurements & Calculations MV E max regan: 82.7 cm/sec Lat Peak E' Regan: 8.5 cm/sec Med Peak E' Regan: 4.3 cm/sec MV A max regan: 71.7 cm/sec E/E' lat: 9.7 E/E' med: 19.1 MV E/A: 1.2 MV V2 max: 92.6 cm/sec MV dec slope: 456.9 cm/sec2 Ao V2 max: 159.9 cm/sec MV max P.4 mmHg Ao max P.2 mmHg MV V2 mean: 48.0 cm/sec Ao V2 mean: 109.3 cm/sec MV mean P.1 mmHg Ao mean P.5 mmHg MV V2 VTI: 32.5 cm Ao V2 VTI: 35.8 cm MVA(VTI): 3.1 cm2 AV (velocity ratio): 0.87 BUSTER(I,D): 2.8 cm2 BUSTER(V,D): 2.6 cm2 LV V1 max: 128.9 cm/sec SV(LVOT): 101.0 ml PA V2 max: 105.9 cm/sec LV V1 max P.7 mmHg PA V2 mean: 72.0 cm/sec LV V1 mean P.1 mmHg LV V1 mean: 96.3 cm/sec LV V1 VTI: 31.3 cm ECHO/Echo Complete W/ Contrast Interpretation Summary Normal LV size. Segmental dysfunction with preserved ejection fraction (see wall motion). The left ventricular ejection fraction is 50 %. Ordering Physician: Tee Raymundo Referring Physician: Tee Raymundo Performed By: Rachel Garcia RCS
--- NOTE | 2024-06-24 14:35 | STRESSREP ---
Stress Test Report Pharmacologic myocardial perfusion stress test. 79-year-old man with a history of coronary artery disease Resting EKG demonstrates sinus bradycardia with a rate of 58 bpm. Resting blood pressure is 142/86 mmHg. 0.4 mg of regadenoson was infused per usual protocol followed by rapid intravenous saline flush injection. Continuous EKG monitoring was performed. The maximum heart rate was 74 bpm which was 53% of max impacted heart rate the maximum workload was 1 metabolic equivalent. At rest there were no ST or T wave changes noted to suggest ischemia and at peak infusion nonspecific ST changes were noted which did not meet the criteria for ischemia. No clinical angina is noted. The final blood pressure was 138/86 mmHg. Myocardial perfusion protocol. 14.1 mCi of technetium 99m sestamibi was injected at rest. 0.4 mg of regadenoson was infused per usual protocol. At peak infusion 43.8 mCi of technetium 99m sestamibi was injected stress images were obtained stress and rest images were reconstructed and compared in the short axis vertical long and horizontal long axis. Gated images were also obtained. Perfusion SPECT analysis: Review of the stress images demonstrate normal uptake of tracer noted in all areas of the myocardium. The distal anteroseptal wall and apex have a perfusion defect which persists with the resting images to a similar extent. The above is suggestive of a distal anteroseptal and apical infarct. No reversibility is noted suggest ischemia. Gated SPECT analysis: The gated ejection fraction is 63%. Conclusion: Nonischemic pharmacologic myocardial perfusion stress test. Previous distal anteroseptal and apical infarct Preserved ejection fraction.
== END | disposition home or self-care (01) ==
LOC: CVS 06:35
PROVIDERS: PCP Family Medicine; Referring Provider Internal Medicine Cardiovascular Disease; Visit Provider Internal Medicine Cardiovascular Disease
DX: I25.5 Ischemic cardiomyopathy (principal); I25.10 Atherosclerotic heart disease of native coronary artery without angina pectoris; Z95.5 Presence of coronary angioplasty implant and graft; I25.2 Old myocardial infarction; I10 Essential (primary) hypertension; E78.00 Pure hypercholesterolemia, unspecified
CPT/HCPCS: 78452; 93017; 93306; A9500; Q9957; A4216; C8929; J2785